=== PATIENT | male | born 1955 | race Two or more races ===

== ENCOUNTER 2022-09-26 07:35 | Outpatient (CLI) | payer OTHER | END 2022-09-26 07:39 | disposition home or self-care (01) | LOC: NUCLEAR 07:35 | PROVIDERS: ATTEND Surgery | DX: R22.1 Localized swelling, mass and lump, neck (principal) ==

== ENCOUNTER 2023-01-18 07:48 | Outpatient (CLI) | payer OTHER | END 2023-01-18 07:51 | disposition home or self-care (01) | LOC: NUCLEAR 07:48 | DX: C09.0 Malignant neoplasm of tonsillar fossa (principal) | CPT/HCPCS: 78815; A9552 ==

== ENCOUNTER 2023-05-16 08:31 | Outpatient (CLI) | payer OTHER | END 2023-05-16 08:37 | disposition home or self-care (01) | LOC: NUCLEAR 08:31 | DX: C09.0 Malignant neoplasm of tonsillar fossa (principal) | CPT/HCPCS: 78815; A9552 ==

== ENCOUNTER 2023-09-18 07:22 | Outpatient (CLI) | payer OTHER | END 2023-09-18 07:24 | disposition home or self-care (01) | LOC: NUCLEAR 07:22 | DX: C09.0 Malignant neoplasm of tonsillar fossa (principal) | CPT/HCPCS: 78815; A9552 ==

== ENCOUNTER 2024-05-31 07:32 | Outpatient (CLI) | payer OTHER | END 2024-05-31 07:33 | disposition home or self-care (01) | LOC: NUCLEAR 07:32 | DX: C09.0 Malignant neoplasm of tonsillar fossa (principal); C79.89 Secondary malignant neoplasm of other specified sites | CPT/HCPCS: 78816; A9552 ==

== ENCOUNTER 2024-11-21 07:31 | Outpatient (CLI) | payer OTHER | END 2024-11-21 07:32 | disposition home or self-care (01) | LOC: NUCLEAR 07:31 | DX: C09.9 Malignant neoplasm of tonsil, unspecified (principal) | CPT/HCPCS: 78816; A9552 ==